=== PATIENT | female | born 1955 | race Caucasian/White ===

== ENCOUNTER → 2021-08-27 13:00 | Outpatient (CLI) | payer MEDICARE, SELFPAY ==
--- NOTE | ~2021-08-27 | MR_ITS ---
EXAMINATION: MR knee RT wo con DATE: 08/27/2021 13:39 INDICATION: Acute onset medial right knee pain and swelling post fall 3 weeks prior. TECHNIQUE: Magnetic resonance imaging (MRI) of the right knee was performed without intravenous contr ast. Sequences included coronal PD-weighted FSE, coronal PD-weighted FS FSE, sagittal T2-weighted FS E, sagittal PD-weighted FS FSE and axial PD weighted fat saturated FSE. COMPARISON: None. FINDINGS: Medial compartment: There is intrasubstance increased signal within the body of the medial meniscus which does not unambi guously contact the articular surface to meet criteria for tear and which likely relates to mucoid de generation. The posterior horn demonstrates normal signal and morphology appears significantly decrea sed in size which suggest prior meniscal tear and secondary loss of the meniscal tissue. Appearance w ould also be consistent with a prior partial meniscectomy although no other postoperative changes are evident and there is no provided history of prior surgery. Partial-thickness cartilage loss involvin g up to 50% the cartilage thickness along the medial side of the anterior weightbearing medial femora l condyle where there is a tiny focus of underlying edema-like marrow signal change. Less severe part ial thickness cartilage loss along the medial tibial plateau. Small marginal osteophytes are present. Lateral compartment: There are irregular margins to the anterior horn of the lateral meniscus with increased signal contac ting articular surface at multiple locations consistent with a complex tear although MRI interpretati on of the anterior horn of the lateral meniscus is a site of low specificity with increased frequency of false positives. There is focal thickening and amorphous increased signal contacting the articula r surface along the inner free edge and inferior surface of the posterior horn lateral meniscus near the posterior root and abuts the posterior aspect of the intercondylar eminence which could be relate d to an additional tear of indeterminate morphology or meniscal contusion. Partial-thickness chondral fissuring along the anterior weightbearing lateral femoral condyle and lateral tibial plateau. Small central subchondral osteophytes with minimal subarticular edema-like signal change along the lateral margin of the posterior most weightbearing lateral femoral condyle. Patellofemoral compartment: Chondral ulceration involving less than 50% the cartilage thickness with chondral surface irregularit y at the caudal aspect of the trochlear groove and medial trochlea. More diffuse partial thickness ca rtilage loss along the lateral trochlea with scattered chondral surface irregularity. Deep chondral u lceration involving greater than 50% the cartilage thickness along the caudal aspect of the lateral p atellar facet and apical ridge. Mild chondral surface irregularity along the medial patellar facet wi thout significant cartilage loss. Ligaments and tendons: Posterior cruciate ligament is normal. There is increased signal and lax appearing ligament fibers al kari the anteromedial bundle of the anterior cruciate ligament. The posterolateral bundle appears to r emain intact. Thickening and prominent amorphous increased signal at the proximal aspect of the media l collateral ligament consistent with high-grade partial if not complete tear of the medial collatera l ligament including the posterior aspect of the medial patellofemoral ligament but appearing to rela tively spare the more posterior posterior oblique component of the ligament. The fibular collateral l igament complex is normal. The extensor mechanism is normal. The visualized medial and lateral hamstr ing tendons as well as the iliotibial band are normal. Fluid: Small right knee joint effusion. No intra-articular loose osteochondral bodies identified. There is a 6 mm peripherally low
== END ==
PROVIDERS: PCP Physician Assistant
DX: S83.511A Sprain of anterior cruciate ligament of right knee, initial encounter (principal); X58.XXXA Exposure to other specified factors, initial encounter; M17.11 Unilateral primary osteoarthritis, right knee
CPT/HCPCS: 73721